=== PATIENT | male | born 1945 | race Caucasian/White ===

== ENCOUNTER 2017-11-01 18:17 | Emergency (ER) | payer OTHER ==
[2017-11-01 18:35] VITALS: BP 146/90; PULSE 86; TEMP 98.4; BMI 39.4
--- NOTE | 2017-11-01 19:48 | PDOC ---
History of Present Illness - General History Source: Patient - History of Present Illness Initial Comments: 11/01/17 20:20 The patient is a 69 y/o afebrile male with a significant past medical history of NIDDM, HTN, HLD, BPH who presents to the emergency department for evaluation of blood glucose in the 500s. The patient denies any complaints of pain. The patients blood glucose in the ED is 319. He denies chest pain, shortness of breath, headache and dizziness. He denies fever, chills, nausea, vomit, diarrhea and constipation. He denies dysuria, frequency, urgency and hematuria. Allergies: NKDA PCP: Dr. Andry Iglesias <Renetta Manzano - Last Filed: 11/01/17 20:20> - General History Source: Patient <Gregorio Santos - Last Filed: 11/02/17 19:59> - General Chief Complaint: Blood Sugar Problem Stated Complaint: HYPERGLYCEMIA Time Seen by Provider: 11/01/17 19:38 Past History <Renetta Manzano - Last Filed: 11/01/17 20:20> - Past Medical History Anemia: No Asthma: No Cancer: No Cardiac Disorders: No CVA: No COPD: No CHF: No Dementia: No Diabetes: Yes GI Disorders: Yes (gerd.) Disorders: No HTN: Yes Hypercholesterolemia: Yes Liver Disease: No Seizures: No Thyroid Disease: No Other medical history: BPH. - Surgical History Abdominal Surgery: No Appendectomy: No Cardiac Surgery: No Cholecystectomy: No Lung Surgery: No Neurologic Surgery: No Orthopedic Surgery: No - Immunization History Immunization Up to Date: Yes - Suicide/Smoking/Psychosocial Hx Smoking Status: Yes Smoking History: Never smoked Have you smoked in the past 12 months: No Number of Cigarettes Smoked Daily: 0 If you are a former smoker, when did you quit?: 20-30 YEARS AGO Hx Alcohol Use: Yes (occassionally.) Drug/Substance Use Hx: No Substance Use Type: Alcohol Hx Substance Use Treatment: No <Gregorio Santos - Last Filed: 11/02/17 19:59> - Past Medical History Allergies/Adverse Reactions: Allergies Allergy/AdvReac Type Severity Reaction Status Date / Time No Known Drug Allergies Allergy Verified 11/01/17 18:35 Home Medications: Ambulatory Orders Tamsulosin HCl 0.4 mg PO DAILY 03/01/13 Simvastatin [Zocor -] 20 mg PO HS 01/13/15 Glipizide [Glipizide ER] 10 mg PO DAILY 02/14/15 Amlodipine Besylate/Benazepril [Lotrel 10-20 mg Capsule] 1 cap PO DAILY Deferasirox [Jadenu] 360 mg PO BID 11/01/17 Hydralazine HCl 50 mg PO DAILY 11/01/17 Insulin Glargine,Hum.rec.anlog [Lantus Solostar] 40 unit SQ DAILY 11/01/17 Losartan/Hydrochlorothiazide [Losartan-Hctz 100-25 mg Tab] 1 each PO DAILY 11/01 Omeprazole Magnesium [Prilosec Otc] 40 mg PO DAILY 11/01/17 Review of Systems - Review of Systems Able to Perform ROS?: Yes Comments:: 11/01/17 20:21 CONSTITUTIONAL: Absent: fever, chills, diaphoresis, generalized weakness, malaise, loss of appetite HEENT: Absent: rhinorrhea, nasal congestion, throat pain, throat swelling, difficulty swallowing, mouth swelling, ear pain, eye pain, visual Changes CARDIOVASCULAR: Absent: chest pain, syncope, palpitations, irregular heart rate, lightheadedness , peripheral edema RESPIRATORY: Absent: cough, shortness of breath, dyspnea with exertion, orthopnea, wheezing, stridor, hemoptysis GASTROINTESTINAL: Absent: abdominal pain, abdominal distension, nausea, vomiting, diarrhea, constipation, melena, hematochezia GENITOURINARY: Absent: dysuria, frequency, urgency, hesitancy, hematuria, flank pain, genital pain MUSCULOSKELETAL: Absent: myalgia, arthralgia, joint swelling SKIN: Absent: rash, itching, pallor HEMATOLOGIC/IMMUNOLOGIC: (+)hyperglycemia. Absent: easy bleeding, easy bruising, lymphadenopathy, frequent infections ENDOCRINE: Absent: unexplained weight gain, unexplained weight loss, heat intolerance, cold intolerance NEUROLOGIC: Absent: headache, focal weakness or paresthesias, dizziness, unsteady gait, seizure, mental status changes, bladder or bowel incontinence PSYCHIATRIC: Absent: anxiety, depression, suicidal or homicidal ideation, hallucinations. <Renetta Manzano - Last Filed: 11/01/17 20:20> *Physical Exam - Vital Signs Last Vital Signs Temp Pulse Resp BP Pulse Ox 98.4 F 86 18 146/90 98 11/01/17 18:32 0218 18:32 11/01/17 18:32 11/01/17 18:32 11/01/17 18:32 - Physical Exam Comments: 11/01/17 20:21 GENERAL: Well developed, well nourished. Awake and alert. No acute distress. HEENT: Normocephalic, atraumatic. PERRLA, EOMI. No conjunctival pallor. Sclera are non- icteric. Moist mucous membranes. Oropharynx is clear. NECK: Supple. Full ROM. No JVD. Carotid pulses 2+ and symmetric, without bruits. No thyromegaly. No lymphadenopathy. CARDIOVASCULAR: Regular rate and rhythm. No murmurs, rubs, or gallops. Distal pulses are 2+ and symmetric. PULMONARY: No evidence of respiratory distress. Lungs clear to auscultation bilaterally. No wheezing, rales or rhonchi. ABDOMINAL: Soft. Non-tender. Non-distended. No rebound or guarding. No organomegaly. Normoactive bowel sounds. MUSCULOSKELETAL Normal range of motion at all joints. No bony deformities or tenderness. No CVA tenderness. EXTREMITIES: No cyanosis. No clubbing. No edema. No calf tenderness. SKIN: Warm and dry. Normal capillary refill. No rashes. No jaundice. NEUROLOGICAL: Alert, awake, appropriate. Cranial nerves 2-12 intact. Normoreflexic in the upper and lower extremities. Normal speech. Toes are down-going bilaterally. Gait is normal without ataxia. PSYCHIATRIC: Cooperative. Good eye contact. Appropriate mood and affect. <Renetta Manzano - Last Filed: 11/01/17 20:20> - Vital Signs Last Vital Signs Temp Pulse Resp BP Pulse Ox 98.4 F 86 18 146/90 98 11/01/17 18:32 11/01/17 18:32 11/01/17 18:32 11/01/17 18:32 11/01/17 18:32 <Gregorio Santos - Last Filed: 11/02/17 19:59> ED Treatment Course - LABORATORY CBC & Chemistry Diagram: 11/01/17 20:00 11/01/17 20:00 - ADDITIONAL ORDERS Additional order review: Laboratory Results 11/01/17 11/01/17 20:00 18:45 POC Glucometer [id number] Magnesium Cancelled Lipase Cancelled 11/01/17 18:45 POC Glucometer [id number] <Renetta Manzano - Last Filed: 11/01/17 20:20> - LABORATORY CBC & Chemistry Diagram: 11/01/17 20:00 11/01/17 20:00 - ADDITIONAL ORDERS Additional order review: Laboratory Results 11/01/17 18:45 POC Glucometer [id number] 11/01/17 18:45 POC Glucometer [id number] <Gregorio Santos - Last Filed: 11/02/17 19:59> Medical Decision Making - Medical Decision Making 11/01/17 23:54 Pt blood glucose is now 254. Pt denies any c/o at all at this time, Pt to be discharged. advised to follow up with is pcp. 11/02/17 19:59 Dr. Santos: The scribe's documentation has been prepared under my direction and personally reviewed by me in its entirery. I confirm that the note above accurately reflects all work, treatment, procedures, and medical decision making performed by me. <Gregorio Santos - Last Filed: 11/02/17 19:59> *DC/Admit/Observation/Transfer - Attestations Scribe Attestion: 11/01/17 20:21 Documentation prepared by Renetta Manzano, acting as medical delivery technician for Gregorio Santos DO <Renetta Manzano - Last Filed: 11/01/17 20:20> - Discharge Dispostion Admit: No <Gregorio Santos - Last Filed: 11/02/17 19:59> Diagnosis at time of Disposition: Hyperglycemia - Discharge Dispostion Disposition: HOME Condition at time of disposition: Stable - Referrals Referrals: Andry Iglesias MD [Primary Care Provider] - - Patient Instructions Printed Discharge Instructions: DI for Hyperglycemia -- Adult Additional Instructions: Please take all medications as usual. Monitor blood glucose often. Eat well. Return if any problems. Print Language: UKRAINIAN - Post Discharge Activity
[2017-11-01] MEDS ORDERED: SODIUM CHLORIDE 1,000 ML IV STA ×2 (19:49→21:21)
[2017-11-01 20:09] LABS: HEMOGLOBIN 13.9 GM/dL (11.7-16.9); MCH 28.7 pg (25.7-33.7); MEAN CELL VOLUME 85.3 fl (80-96)
[2017-11-01 20:20] LABS: BASO % 0.6 % (0-2.0); EOS % 4.6 % (0-4.5); HEMATOCRIT 41.4 % (35.4-49); LYMPH % 30.1 % (8-40); MCHC 33.7 g/dl (32.0-35.9); MEAN PLT VOLUME 8.7 fl (7.5-11.1); MONO % 7.2 % (3.8-10.2); NEUT % 57.5 % (42.8-82.8); PLATELET COUNT 299 K/MM3 (134-434); RBC 4.85 M/mm3 (4.00-5.60); RDW 13.4 % (11.9-15.9); WHITE BLOOD COUNT 8.6 K/mm3 (4.0-10.0)
[2017-11-01 20:48] LABS: ALBUMIN 3.8 g/dl (3.4-5.0); ALK PHOS 146 U/L (45-117); ANION GAP 8 (8-16); BILIRUBIN,TOTAL 0.5 mg/dL (0.2-1.0); BLOOD UREA NITROGEN 18 mg/dL (7-18); CALCIUM 8.6 mg/dL (8.5-10.1); CHLORIDE 97 mmol/L (98-107); CO2 27 mmol/L (21-32); CREATININE 1.4 mg/dL (0.7-1.3); LIPASE 168 U/L (73-393); SGPT/ALT 37 U/L (12-78); SODIUM 132 mmol/L (136-145); TOT PROT 7.4 g/dl (6.4-8.2)
[2017-11-01 21:06] LABS: MAGNESIUM 2.4 mg/dL (1.8-2.4); POTASSIUM 4.7 mmol/L (3.5-5.1); SGOT/AST 16 U/L (15-37)
[2017-11-01 21:09] LABS: GLUCOSE,RANDOM 533 mg/dL (74-106); INR 0.93 (0.82-1.09); PROTHROMBIN TIME (PATIENT) 10.5 SEC (9.98-11.88)
[2017-11-01 21:11] LABS: ACETONE SERUM NEGATIVE (NEGATIVE)
[2017-11-01 21:11] LABS: URINE APPEARANCE CLEAR; URINE BILIRUBIN NEGATIVE (NEGATIVE); URINE BLOOD NEGATIVE (NEGATIVE); URINE COLOR COLORLESS; URINE GLUCOSE (UA) 3+ (NEGATIVE); URINE KETONE NEGATIVE (NEGATIVE); URINE LEUK ESTERASE NEGATIVE (NEGATIVE); URINE NITRITE NEGATIVE (NEGATIVE); URINE PROTEIN NEGATIVE (NEGATIVE); URINE UROBILINOGEN NEGATIVE mg/dL (0.2-1.0)
[2017-11-01] MEDS ORDERED: INSULIN REGULAR HUMAN 100 UNITS/ML *VIAL IVPUSH ONE ×2 (21:21→22:46)
[2017-11-01] MEDS ORDERED: INSULIN REGULAR HUMAN 100 UNITS/ML *VIAL ONE ×2 (21:22→22:50)
== END 2017-11-02 00:04 | disposition home or self-care (01) ==
LOC: JER 18:17
PROC: 3E0337Z Introduction of Electrolytic and Water Balance Substance into Peripheral Vein, Percutaneous Approach (ICD-10-PCS; principal; 2017-11-01)
PROC: 3E033VG Introduction of Insulin into Peripheral Vein, Percutaneous Approach (ICD-10-PCS; 2017-11-01)
PROC: 3E033VG Introduction of Insulin into Peripheral Vein, Percutaneous Approach (ICD-10-PCS; 2017-11-01)
DX: E11.65 Type 2 diabetes mellitus with hyperglycemia (principal); Z79.84 Long term (current) use of oral hypoglycemic drugs; I10 Essential (primary) hypertension; E78.00 Pure hypercholesterolemia, unspecified; N40.0 Benign prostatic hyperplasia without lower urinary tract symptoms
CPT/HCPCS: 36415; 80053; 81003; 82009; 83690; 83735; 85025; 85610; 96361; 96374; 96376; 99283-25

== ENCOUNTER 2019-05-17 11:30 | Inpatient (IN) | payer OTHER | END 2019-05-22 15:32 | disposition home or self-care (01) | LOC: J5S 05-18 00:39 → J8W 05-19 22:50 → JERFT 11:30 → JERBED 14:54 ==

== ENCOUNTER 2020-06-18 16:13 | Emergency (ER) | payer OTHER ==
[2020-06-18 16:32] VITALS: TEMP 98.6; BMI 38.9
[2020-06-18] MEDS ORDERED: ACETAMINOPHEN 1000 MG/100 ML VIAL (NON FORMULARY) IVPB ONE (17:34)
[2020-06-18] MEDS ORDERED: METOCLOPRAMIDE HCL INJECTION 10 MG/2 ML VIAL IVPB ONE (17:35)
[2020-06-18] MEDS ORDERED: ACETAMINOPHEN INJECTION 100 ML IVPB ONE (17:54)
[2020-06-18] MEDS ORDERED: METOCLOPRAMIDE HCL INJECTION 10 MG/2 ML VIAL ONE (17:54)
--- NOTE | 2020-06-18 18:21 | PDOC ---
History of Present Illness - General Chief Complaint: Blood Pressure Problem Stated Complaint: BLOOD PRESSURE PROBLEM Time Seen by Provider: 06/18/20 16:42 - History of Present Illness Initial Comments: Pt is a 74yo M for IDDM, HTN, HLD who presents with elevated blood pressure and headache. Pt states that his blood pressure reading was elevated to 190s SBP yesterday and today. Took 650mg Tylenol at 11am today with mild improvement in symptoms. Also reports 2 month history of R eye blurry vision. Reports that he is compliant with medications, however, his son reports that medications were not placed into pill box correctly this past week in addition to skipped doses of medication. Son states that he gave pt double doses of hydralazine for yesterday evening and this morning; however pt's states that he received his normal doses of medications today. PCP: [facility] PMH: see HPI Meds: losartan, hydralazine, insulin Allergies: NKDA Social: occasional ETOH use, denies tobacco and illicit drug use Review of Systems CONSTITUTIONAL:denies fever, chills, diaphoresis, generalized weakness, malaise HEENT:reports chronic visual changes; denies rhinorrhea, nasal congestion, sore throat, ear pain, eye pain CARDIOVASCULAR:denies chest pain, palpitations, lightheadedness, peripheral edema RESPIRATORY:denies cough, shortness of breath, wheezing GASTROINTESTINAL: denies abdominal pain, nausea, vomiting, diarrhea, constipation, melena, hematochezia GENITOURINARY:denies dysuria, frequency, urgency, hesitancy, hematuria MUSCULOSKELETAL:denies myalgia, arthralgia, neck pain, back pain HEMATOLOGIC/IMMUNOLOGIC:denies easy bleeding, easy bruising ENDOCRINE: denies unexplained weight gain, unexplained weight loss NEUROLOGIC:reports headache, denies loss of consciousness, focal weakness or paresthesias, dizziness, unsteady gait, mental status changes, bladder or bowel incontinence SKIN:denies rash, itching, pallor Physical Exam General: awake, alert, fully oriented, in no acute distress, well developed, well nourished Head: normocephalic, atraumatic Eyes: PERRL, EOMI, anicteric sclera, conjunctiva clear ENT: hearing grossly normal, oropharynx clear without exudates. Moist mucous membranes Neck: supple, normal ROM Lung: equal breath sounds b/l, CTA b/l, no crackles, wheezes; no distress, speaks full sentences Heart: RRR, normal S1, S2, no murmurs appreciated Abdomen: soft, non tender, normoactive bowel sounds, no guarding, rebound, masses Extremities: normal ROM, no edema, no erythema or tenderness, radial/DP/PT pulses 2+ and symmetric Neuro: CN2-12 grossly intact, moves all extremities, normal speech, sensation intact Skin: warm, dry, no rashes or lesions noted Past History - Medical History Allergies/Adverse Reactions: Allergies Allergy/AdvReac Type Severity Reaction Status Date / Time No Known Drug Allergies Allergy Verified 05/17/19 11:35 Home Medications: Ambulatory Orders Tamsulosin HCl 0.4 mg PO DAILY 03/01/13 Simvastatin [Zocor -] 20 mg PO HS 01/13/15 Hydralazine HCl 50 mg PO DAILY 11/01/17 Insulin Glargine,Hum.rec.anlog [Lantus Solostar] 40 unit SQ DAILY 11/01/17 Omeprazole Magnesium [Prilosec Otc] 40 mg PO DAILY 11/01/17 Amlodipine Besylate 10 mg PO DAILY 05/17/19 Insulin (LOG) Aspart [NovoLOG -] 0 unit SQ DAILY 05/17/19 Sitagliptin Phos/Metformin HCl [Janumet 50-500 mg Tablet] 1 tab PO DAILY 05/17/19 Linezolid [Zyvox] 600 mg PO BID #20 tablet 05/22/19 Anemia: No Asthma: No Cancer: No Cardiac Disorders: No CVA: No COPD: No CHF: No Dementia: No Diabetes: Yes GI Disorders: Yes (gerd.) Disorders: No HTN: Yes Hypercholesterolemia: Yes Liver Disease: No Seizures: No Thyroid Disease: No - Surgical History Abdominal Surgery: No Appendectomy: No Cardiac Surgery: No Cholecystectomy: No Lung Surgery: No Neurologic Surgery: No Orthopedic Surgery: No - Immunization History Immunization Up to Date: Yes - Psycho-Social/Smoking History Smoking Status: Yes Smoking History: Never smoked Have you smoked in the past 12 months: No Number of Cigarettes Smoked Daily: 0 If you are a former smoker, when did you quit?: 20-30 YEARS AGO - Substance Abuse Hx (Audit-C & DAST Scrn) How often the patient has a drink containing alcohol: Never Score: In Men: 4 or > Positive; In Women: 3 or > Positive: 0 Screen Result (Pos requires Nsg. Audit-10AR): Negative In the last yr the pt used illegal drug/Rx for NonMed reason: No Score: Yes response is considered Positive: 0 Screen Result (Positive result requires Nsg. DAST-10): Negative *Physical Exam - Vital Signs Last Vital Signs Temp Pulse Resp BP Pulse Ox 98.6 F 102 H 20 192/111 H 100 06/18/20 16:17 06/18/20 16:17 06/18/20 16:17 06/18/20 16:17 06/18/20 16:17 ED Treatment Course - LABORATORY CBC & Chemistry Diagram: 06/18/20 18:00 06/18/20 18:00 - RADIOLOGY Radiology Studies Ordered: Category Date Time Status HEAD CT WITHOUT CONTRAST [CT] Stat CT Scan 06/18/20 17:34 Ordered Medical Decision Making - Medical Decision Making Pt is a 74yo M with PMH IDDM, HTN, HLD who presents with elevated blood pressure and headache. DDx: hypertensive urgency, intracranial hemorrhage Plan: labs, UA, EKG EKG: sinus rhythm with 1st degree AV block (unchanged from 2019), HR 77bpm, NH 236ms, QRS 84ms, QTc 425ms, no ST changes 06/18/20 18:38 labs: no leukocytosis, no anemia 06/18/20 19:03 labs: elevated Cr (1.5, baseline 1.3), electrolytes WNL, LFTs WNL pending CT, UA 06/18/20 19:18 UA: trace protein, glucosuria 06/18/20 19:46 CT head: no acute intracranial bleeding Pt states that headache is improved Disposition Discharge to home Discharge - Discharge Information Problems reviewed: Yes Clinical Impression/Diagnosis: Glucosuria, Uncontrolled hypertension, Hypertensive urgency Hypertension Qualifiers: Hypertension type: unspecified Qualified Code(s): I10 - Essential (primary) hypertension Condition: Stable Disposition: HOME - Admission No - Follow up/Referral Referrals: Andry Iglesias MD [Primary Care Provider] - - Patient Discharge Instructions Patient Printed Discharge Instructions: DI for High Blood Pressure Additional Instructions: You came into the ER elevated blood pressure. In the ED, you were evaluated with blood work, urinalysis and head CT. Your blood work results were normal, your urine results showed sugar, you should take your insulin as prescribed. Your head CT was normal, it did not indicate any bleeding in the brain. You do not appear to be an acute need for immediate hospitalization. You should try to limit your intake of foods high in salt (sodium). You were advised to follow up with your primary care doctor tomorrow. You should have your blood pressure re-checked at your PCP office. Come back to the ER immediately with any new or worsening concerns, worsening vision, headaches. Thank you for coming to the [facility] ER. We hope you feel better soon! - Post Discharge Activity Vital Signs - Vital Signs Blood Pressure: 170/95 BP Location: Right Arm Blood Pressure position: Supine
[2020-06-18 18:33] LABS: BASO % 0.7 % (0-2.0); EOS % 5.8 % (0-4.5); HEMATOCRIT 42.8 % (35.4-49); HEMOGLOBIN 14.2 GM/dL (11.7-16.9); LYMPH % 27.2 % (8-40); MCH 28.8 pg (25.7-33.7); MCHC 33.3 g/dl (32.0-35.9); MEAN CELL VOLUME 86.6 fl (80-96); MEAN PLT VOLUME 7.9 fl (7.5-11.1); MONO % 7.6 % (3.8-10.2); NEUT % 58.7 % (42.8-82.8); PLATELET COUNT 375 K/MM3 (134-434); RBC 4.94 M/mm3 (4.00-5.60); RDW 15.1 % (11.9-15.9); WHITE BLOOD COUNT 9.9 K/mm3 (4.0-10.0)
[2020-06-18 18:45] LABS: ALBUMIN 3.5 g/dl (3.4-5.0); ALK PHOS 65 U/L (45-117); ANION GAP 7 MMOL/L (8-16); BILIRUBIN,TOTAL 0.3 mg/dL (0.2-1); BLOOD UREA NITROGEN 15.2 mg/dL (7-18); CALCIUM 9.2 mg/dL (8.5-10.1); CHLORIDE 110 mmol/L (98-107); CO2 25 mmol/L (21-32); CREATININE 1.5 mg/dL (0.55-1.3); GLUCOSE,RANDOM 137 mg/dL (74-106); POTASSIUM 4.8 mmol/L (3.5-5.1); SGOT/AST 22 U/L (15-37); SGPT/ALT 34 U/L (13-61); SODIUM 141 mmol/L (136-145); TOT PROT 6.9 g/dl (6.4-8.2)
--- NOTE | 2020-06-18 19:03 | PDOC ---
Documentation entered by Daisy De Jesus SCRIBE, acting as scribe for Elizabeth Mcdonald DO. Elizabeth Mcdonald DO: This documentation has been prepared by the ericae, Daisy De Jesus SCRIBE, under my direction and personally reviewed by me in its entirety. I confirm that the documentation accurately reflects all work, treatment, procedures, and medical decision making performed by me. Attending Attestation - Resident Resident Name: Candie Miranda - ED Attending Attestation I have performed the following: I have examined & evaluated the patient, The case was reviewed & discussed with the resident, I agree w/resident's findings & plan, Exceptions are as noted - HPI HPI: 06/18/20 18:39 The patient is a 74-year-old male with a significant past medical history of DM, HTN(losartan and hydralazine), HLD, and BPH who presents to the emergency department with elevated blood pressure and a headache. The patient recalls having elevated blood pressure at home, reports he is compliant with all his HTN medication. The patient reports associated symptoms of a frontal headache, resolved after taking Tylenol. The patient reports that even after the headache resolved, his blood pressure was still noted to be elevated. The patients children were concerned and the patient presented for further evaluation. Denies vision change, paresthesia, chest pain, abdominal pain. Denies recent fever, shortness of breath, cough, sore throat, difficulty urinating. - Physicial Exam PE: 06/18/20 18:40 Constitutional: Awake, alert, oriented. No acute distress. Head: Normocephalic. Atraumatic Eyes: PERRL. EOMI. Conjunctivae are not pale. ENT: Mucous membranes are moist and intact. Posterior pharynx without exudate or erythema. Uvula midline. Neck: Supple. Full ROM. No lymphadenopathy. Cardiovascular: Regular rate. Regular rhythm. S1, S2 regular. Distal pulses are 2+ and symmetric. Pulmonary/Chest: No evidence of respiratory distress. Clear to auscultation bilaterally No wheezing, rales or rhonchi. Abdominal: Soft and nondistended. There is no tenderness. No rebound, guarding or rigidity. Good bowel sounds. Back: No CVA tenderness. Musculoskeletal: No neck tenderness. No cyanosis. No clubbing. Full range of motion in all extremities. No calf tenderness. Radial/pedal pulses are intact and 2+ bilaterally Skin: +very trace edema of the ankle, chronic in nature. Skin is warm and dry. No petechiae. No purpura. Neurological: Alert and oriented to person, place, and time. Cranial nerves II-XII are grossly intact. Normal speech. Strength is grossly symmetric. No sensory deficits. Psychiatric: Good eye contact. Normal interaction, affect and behavior. - Medical Decision Making 06/18/20 18:58 a/p: 74yo male with pmhx of htn presents for eval of a card earlier today, which has resolved and elevated bp -pt arrives hypertensive -states he is compliance with his meds -pt denies neck pain, blurred vision, cp/sob, abd pain, no dysuria. hematuria, n/v/d, paresthesias and weakness -will send labs, head ct, ekg, cxr, ua -will medicate for pain -will monitor and reassess -pt is neuro intact 06/18/20 19:03 cr 1.5, baseline 1.3 06/18/20 19:[address] without new changes labs reviewed trop neg ua shows glu stable for dc to home repeat bp is 170/95 recommend repeat bp check tomorrow with Dr. Iglesias Heart Score/ECG Review - ECG Intrepretation Comment:: 06/18/20 19:02 sinus at 77, 1st degree av block, nl axis, no acute st/t wave findings Discharge - Discharge Information Problems reviewed: Yes Clinical Impression/Diagnosis: Glucosuria, Uncontrolled hypertension Condition: Stable Disposition: HOME - Admission No - Follow up/Referral Referrals: Andry Iglesias MD [Primary Care Provider] - - Patient Discharge Instructions - Post Discharge Activity
[2020-06-18 19:11] LABS: URINE APPEARANCE CLEAR; URINE BILIRUBIN NEGATIVE (NEGATIVE); URINE COLOR YELLOW; URINE GLUCOSE (UA) 3+ (NEGATIVE); URINE KETONE NEGATIVE (NEGATIVE); URINE LEUK ESTERASE NEGATIVE (NEGATIVE); URINE NITRITE NEGATIVE (NEGATIVE); URINE PROTEIN TRACE (NEGATIVE); URINE UROBILINOGEN 0.2 mg/dL (0.2-1.0)
[2020-06-18 19:21] VITALS: PULSE 85
[2020-06-18 19:32] VITALS: BP 170/95
--- NOTE | 2020-06-19 16:56 | EKG ---
Test Reason : Blood Pressure : / mmHG Vent. Rate : 077 BPM Atrial Rate : 077 BPM P-R Int : 236 ms QRS Dur : 084 ms QT Int : 376 ms P-R-T Axes : 027 017 037 degrees QTc Int : 425 ms SINUS RHYTHM WITH 1ST DEGREE A-V BLOCK OTHERWISE NORMAL ECG WHEN COMPARED WITH ECG OF 17-MAY-2019 13:59, ABERRANT CONDUCTION IS NO LONGER PRESENT Confirmed by KWABENA APONTE, ONEL ([id number]) on 06/19/2020 4:55:58 PM Referred By: Confirmed By:ONEL YUAN MD
== END 2020-06-18 20:00 | disposition home or self-care (01) ==
LOC: JER 16:13
PROC: 3E033NZ Introduction of Analgesics, Hypnotics, Sedatives into Peripheral Vein, Percutaneous Approach (ICD-10-PCS; principal; 2020-06-18)
PROC: 3E033GC Introduction of Other Therapeutic Substance into Peripheral Vein, Percutaneous Approach (ICD-10-PCS; 2020-06-18)
DX: R81 Glycosuria (principal); I16.0 Hypertensive urgency
CPT/HCPCS: 36415; 70450-TC; 80053; 81003; 84484; 85025; 93005; 93010; 99285-25; J0131

== ENCOUNTER 2021-12-22 20:46 | Inpatient (IN) | payer OTHER ==
[2021-12-22 20:56] VITALS: BMI 39.9
[2021-12-22 22:19] LABS: BASO % 0.6 % (0-2.0); HEMOGLOBIN 14.2 GM/dL (11.7-16.9); LYMPH % 23.8 % (8-40); MCH 29.5 pg (25.7-33.7); MCHC 34.7 g/dl (32.0-35.9); MEAN PLT VOLUME 7.8 fl (7.5-11.1); MONO % 7.2 % (3.8-10.2); NEUT % 62.4 % (42.8-82.8); PLATELET COUNT 340 10^3/uL (134-434); RBC 4.82 M/mm3 (4.00-5.60); WHITE BLOOD COUNT 9.5 K/mm3 (4.0-10.0)
[2021-12-22 22:37] LABS: EPI CELLS 2 /uL (0-25.1); HYALINE CASTS 0 /uL (0-3.1); URINE APPEARANCE CLEAR; URINE BACTERIA 9 /uL (0-1359); URINE BILIRUBIN NEGATIVE (NEGATIVE); URINE COLOR YELLOW; URINE GLUCOSE (UA) 3+ (NEGATIVE); URINE KETONE NEGATIVE (NEGATIVE); URINE LEUK ESTERASE NEGATIVE (NEGATIVE); URINE NITRITE NEGATIVE (NEGATIVE); URINE PROTEIN 1+ (NEGATIVE); URINE RBC 3 /uL (0-23.9); URINE UROBILINOGEN 0.2 mg/dL (0.2-1.0); URINE WBC 2 /uL (0-25.8)
[2021-12-22 22:51] LABS: INR 0.92 (0.83-1.09); PROTHROMBIN TIME (PATIENT) 10.6 SEC (9.7-13.0)
[2021-12-22 22:53] LABS: ACTIVATED PTT 27.4 SECONDS (25.2-36.5)
[2021-12-22 23:02] LABS: CALCIUM 9.1 mg/dL (8.5-10.1)
[2021-12-22 23:03] LABS: ALBUMIN 3.6 g/dl (3.4-5.0)
[2021-12-22 23:04] LABS: BLOOD UREA NITROGEN 17.9 mg/dL (7-18)
[2021-12-22 23:06] LABS: CREATININE 1.7 mg/dL (0.55-1.3)
[2021-12-22 23:09] LABS: BILIRUBIN,TOTAL 0.6 mg/dL (0.2-1)
[2021-12-23] MEDS ORDERED: ASPIRIN COATED 81 MG TABLET.EC PO ONE (02:57)
[2021-12-23] MEDS ORDERED: ATORVASTATIN CA 40 MG TABLET (FP) PO SCH ×2 (02:58→17:31)
[2021-12-23] MEDS ORDERED: ATORVASTATIN CA 40 MG TABLET (FP) ONE (03:26)
[2021-12-23] MEDS ORDERED: ASPIRIN COATED 81 MG TABLET.EC ONE ×2 (03:26→08:24)
[2021-12-23] MEDS ORDERED: HEPARIN NA (PORCINE) 5,000 UNITS/ML 1ML VIAL ONE ×2 (05:51→08:24)
[2021-12-23] MEDS: HEPARIN NA (PORCINE) 5,000 UNITS/ML 1ML VIAL SQ SCH ×3 (06:03→21:34)
[2021-12-23] MEDS ORDERED: INSULIN SLIDING SCALE (NOVOLOG) 1 VIAL SQ SCH (07:00)
[2021-12-23 08:01] LABS: BASO % 0.5 % (0-2.0); EOS % 5.9 % (0-4.5); HEMATOCRIT 39.2 % (35.4-49); LYMPH % 28.2 % (8-40); MCH 28.4 pg (25.7-33.7); MCHC 33.2 g/dl (32.0-35.9); MEAN CELL VOLUME 85.4 fl (80-96); MEAN PLT VOLUME 8.3 fl (7.5-11.1); MONO % 7.7 % (3.8-10.2); NEUT % 57.7 % (42.8-82.8); PLATELET COUNT 335 10^3/uL (134-434); RBC 4.59 M/mm3 (4.00-5.60); WHITE BLOOD COUNT 10.1 K/mm3 (4.0-10.0)
[2021-12-23 08:12] LABS: CALCIUM 9.4 mg/dL (8.5-10.1)
[2021-12-23 08:13] LABS: ALBUMIN 3.4 g/dl (3.4-5.0); BLOOD UREA NITROGEN 15.7 mg/dL (7-18)
[2021-12-23 08:16] LABS: CREATININE 1.5 mg/dL (0.55-1.3); PHOSPHOROUS 2.7 mg/dL (2.5-4.9)
[2021-12-23 08:17] LABS: BILIRUBIN,TOTAL 0.4 mg/dL (0.2-1); TOT PROT 6.5 g/dl (6.4-8.2)
[2021-12-23] MEDS: ASPIRIN COATED 81 MG TABLET.EC PO SCH (09:02)
[2021-12-23] MEDS: INSULIN SLIDING SCALE (NOVOLOG) 1 VIAL SQ SCH ×3 (11:28→21:34)
[2021-12-23] MEDS: FENOFIBRIC ACID 135 MG CAP PO SCH (11:29)
[2021-12-23] MEDS: amLODIPine BESYLATE 5 MG TABLET (FP) PO SCH (13:15)
[2021-12-23] MEDS ORDERED: hydrALAZINE HCL 25 MG TABLET (FP) PO ONE (14:45)
[2021-12-23] MEDS ORDERED: INSULIN (NOVOLOG) ASPART 100 UNITS/ML 10ML VIAL SQ ONE (15:00)
[2021-12-23] MEDS: INSULIN (LEVEMIR) 100 UNITS/ML UNITS SQ SCH (21:33)
[2021-12-23] MEDS: ATORVASTATIN CA 80 MG TABLET (FP) PO SCH (21:34)
[2021-12-24] MEDS: HEPARIN NA (PORCINE) 5,000 UNITS/ML 1ML VIAL SQ SCH ×3 (06:12→22:38)
[2021-12-24] MEDS: INSULIN SLIDING SCALE (NOVOLOG) 1 VIAL SQ SCH ×4 (06:13→22:39)
[2021-12-24 07:44] LABS: BLOOD UREA NITROGEN 15.4 mg/dL (7-18); CALCIUM 9.2 mg/dL (8.5-10.1); HEMATOCRIT 40.7 % (35.4-49); MCH 28.9 pg (25.7-33.7); MCHC 34.3 g/dl (32.0-35.9); MEAN CELL VOLUME 84.2 fl (80-96); MEAN PLT VOLUME 8.4 fl (7.5-11.1); PLATELET COUNT 353 10^3/uL (134-434); RBC 4.83 M/mm3 (4.00-5.60); RDW 13.6 % (11.9-15.9); WHITE BLOOD COUNT 9.3 K/mm3 (4.0-10.0)
[2021-12-24 07:46] LABS: PHOSPHOROUS 3.5 mg/dL (2.5-4.9)
[2021-12-24 07:48] LABS: CREATININE 1.4 mg/dL (0.55-1.3)
[2021-12-24] MEDS: CARVEDILOL 6.25 MG TABLET (FP) PO SCH (10:19)
[2021-12-24] MEDS: amLODIPine BESYLATE 5 MG TABLET (FP) PO SCH (10:19)
[2021-12-24] MEDS: FENOFIBRIC ACID 135 MG CAP PO SCH (10:19)
[2021-12-24] MEDS: ASPIRIN COATED 81 MG TABLET.EC PO SCH (10:19)
[2021-12-24] MEDS: TAMSULOSIN HCL 0.4 MG CAP PO SCH (10:19)
[2021-12-24] MEDS: INSULIN (LEVEMIR) 100 UNITS/ML UNITS SQ SCH ×2 (10:26→22:37)
[2021-12-24] MEDS: ATORVASTATIN CA 80 MG TABLET (FP) PO SCH (22:39)
[2021-12-25] MEDS: HEPARIN NA (PORCINE) 5,000 UNITS/ML 1ML VIAL SQ SCH ×3 (06:57→22:23)
[2021-12-25] MEDS: INSULIN SLIDING SCALE (NOVOLOG) 1 VIAL SQ SCH ×4 (06:57→22:24)
[2021-12-25 07:42] LABS: BASO % 0.4 % (0-2.0); EOS % 5.9 % (0-4.5); HEMATOCRIT 39.8 % (35.4-49); HEMOGLOBIN 13.9 GM/dL (11.7-16.9); LYMPH % 29.5 % (8-40); MCH 29.4 pg (25.7-33.7); MEAN CELL VOLUME 83.9 fl (80-96); MEAN PLT VOLUME 8.3 fl (7.5-11.1); MONO % 8.2 % (3.8-10.2); PLATELET COUNT 328 10^3/uL (134-434); RBC 4.75 M/mm3 (4.00-5.60); RDW 13.4 % (11.9-15.9)
[2021-12-25 08:03] LABS: CALCIUM 9.1 mg/dL (8.5-10.1)
[2021-12-25 08:04] LABS: BLOOD UREA NITROGEN 21.5 mg/dL (7-18)
[2021-12-25 08:06] LABS: CREATININE 1.5 mg/dL (0.55-1.3)
[2021-12-25] MEDS: ASPIRIN COATED 81 MG TABLET.EC PO SCH (09:24)
[2021-12-25] MEDS: amLODIPine BESYLATE 5 MG TABLET (FP) PO SCH (09:24)
[2021-12-25] MEDS: CARVEDILOL 6.25 MG TABLET (FP) PO SCH (09:24)
[2021-12-25] MEDS: TAMSULOSIN HCL 0.4 MG CAP PO SCH (09:24)
[2021-12-25] MEDS: FENOFIBRIC ACID 135 MG CAP PO SCH (09:29)
[2021-12-25] MEDS: Insulin (LOG) Aspart 100 UNITS/ML VIAL SQ SCH ×2 (11:57→18:50)
[2021-12-25] MEDS: INSULIN (LEVEMIR) 100 UNITS/ML UNITS SQ SCH ×2 (11:58→22:22)
[2021-12-25] MEDS ORDERED: INSULIN (NOVOLOG) ASPART 100 UNITS/ML 10ML VIAL SQ ONE (14:13)
[2021-12-25] MEDS: ATORVASTATIN CA 80 MG TABLET (FP) PO SCH (22:32)
[2021-12-26] MEDS: HEPARIN NA (PORCINE) 5,000 UNITS/ML 1ML VIAL SQ SCH ×3 (05:45→22:21)
[2021-12-26] MEDS: INSULIN SLIDING SCALE (NOVOLOG) 1 VIAL SQ SCH ×4 (07:14→22:22)
[2021-12-26] MEDS: Insulin (LOG) Aspart 100 UNITS/ML VIAL SQ SCH ×3 (07:15→17:04)
[2021-12-26] MEDS: INSULIN (LEVEMIR) 100 UNITS/ML UNITS SQ SCH ×2 (08:59→22:20)
[2021-12-26] MEDS: amLODIPine BESYLATE 5 MG TABLET (FP) PO SCH (09:13)
[2021-12-26] MEDS: ASPIRIN COATED 81 MG TABLET.EC PO SCH (09:13)
[2021-12-26] MEDS: CARVEDILOL 6.25 MG TABLET (FP) PO SCH (09:13)
[2021-12-26] MEDS: TAMSULOSIN HCL 0.4 MG CAP PO SCH (09:13)
[2021-12-26] MEDS: FENOFIBRIC ACID 135 MG CAP PO SCH (09:15)
[2021-12-26] MEDS: ATORVASTATIN CA 80 MG TABLET (FP) PO SCH (22:21)
[2021-12-27] MEDS: Insulin (LOG) Aspart 100 UNITS/ML VIAL SQ SCH ×3 (06:12→16:50)
[2021-12-27] MEDS: HEPARIN NA (PORCINE) 5,000 UNITS/ML 1ML VIAL SQ SCH ×3 (06:13→21:25)
[2021-12-27] MEDS: INSULIN SLIDING SCALE (NOVOLOG) 1 VIAL SQ SCH ×4 (06:14→21:24)
[2021-12-27] MEDS: TAMSULOSIN HCL 0.4 MG CAP PO SCH (09:06)
[2021-12-27] MEDS: amLODIPine BESYLATE 5 MG TABLET (FP) PO SCH (09:06)
[2021-12-27] MEDS: ASPIRIN COATED 81 MG TABLET.EC PO SCH (09:06)
[2021-12-27] MEDS: CARVEDILOL 6.25 MG TABLET (FP) PO SCH (09:06)
[2021-12-27] MEDS: INSULIN (LEVEMIR) 100 UNITS/ML UNITS SQ SCH ×2 (09:07→21:24)
[2021-12-27] MEDS: FENOFIBRIC ACID 135 MG CAP PO SCH (10:10)
[2021-12-27] MEDS ORDERED: ASPIRIN 325 MG ENTERIC COATED TABLET (FP) PO SCH (13:13)
[2021-12-27] MEDS: ATORVASTATIN CA 80 MG TABLET (FP) PO SCH (21:25)
[2021-12-28] MEDS: INSULIN SLIDING SCALE (NOVOLOG) 1 VIAL SQ SCH ×3 (06:08→17:27)
[2021-12-28] MEDS: Insulin (LOG) Aspart 100 UNITS/ML VIAL SQ SCH ×3 (06:08→17:27)
[2021-12-28] MEDS: HEPARIN NA (PORCINE) 5,000 UNITS/ML 1ML VIAL SQ SCH ×2 (06:08→14:26)
[2021-12-28] MEDS ORDERED: LABETALOL HCL 5 MG/1 ML (100MG/20 ML VIAL) IVPUSH ONE (08:00)
[2021-12-28] MEDS: INSULIN (LEVEMIR) 100 UNITS/ML UNITS SQ SCH (08:44)
[2021-12-28] MEDS: TAMSULOSIN HCL 0.4 MG CAP PO SCH (08:45)
[2021-12-28] MEDS ORDERED: LOSARTAN 50MG/HCTZ 12.5MG 1 TAB PO SCH (10:00)
[2021-12-28] MEDS ORDERED: LISINOPRIL 10 MG TABLET PO SCH (10:00)
[2021-12-28 10:06] VITALS: BP 148/75; PULSE 84; TEMP 98
[2021-12-28] MEDS: CARVEDILOL 6.25 MG TABLET (FP) PO SCH (10:38)
[2021-12-28] MEDS: FENOFIBRIC ACID 135 MG CAP PO SCH (10:39)
[2021-12-28] MEDS: amLODIPine BESYLATE 5 MG TABLET (FP) PO SCH (10:39)
== END 2021-12-28 18:29 | DRG 65 ==
LOC: SUATTDRO 20:46 → JER 20:46 → JERBED 12-23 00:42 → J4W 12-23 18:12 → OBSVTOIN 12-24 11:40 → J4W 12-25 19:52
PROVIDERS: ADMIT Internal Medicine
DX: I63.9 Cerebral infarction, unspecified (principal); N17.9 Acute kidney failure, unspecified; N40.0 Benign prostatic hyperplasia without lower urinary tract symptoms; R29.700 NIHSS score 0; K21.9 Gastro-esophageal reflux disease without esophagitis; E66.9 Obesity, unspecified; Z68.39 Body mass index [BMI] 39.0-39.9, adult; I44.0 Atrioventricular block, first degree; I25.10 Atherosclerotic heart disease of native coronary artery without angina pectoris; I12.9 Hypertensive chronic kidney disease with stage 1 through stage 4 chronic kidney disease, or unspecified chronic kidney disease; E11.22 Type 2 diabetes mellitus with diabetic chronic kidney disease; N18.9 Chronic kidney disease, unspecified; N28.1 Cyst of kidney, acquired
CPT/HCPCS: 36415; 70450-TC; 70551-TC; 71045-TC-FY; 72141-TC; 76775-TC; 76856-TC; 80048; 80053; 80061; 81003; 82436; 82550; 82570; 82962; 83036; 83735; 84100; 84133; 84300; 84484; 84540; 85025; 85027; 85610; 85730; 86850; 86900; 86901; 87081; 93005; 93010; 93306-TC; 93880-TC; 97116-GP; 97162-GP; 99285-25; C9803; G0378; J1644; U0003; U0005

== ENCOUNTER 2023-06-15 04:14 | Day surgery (SDC) | payer OTHER ==
[2023-06-13 10:50] VITALS: BMI 37.4
[~2023-06-15 04:14] MED LIST: ACETAMINOPHEN 325 MG TABLET (FP) PO PRN
[2023-06-15 06:34] VITALS: RESP 20
[2023-06-15] MEDS ORDERED: CYCLOPENTOLATE HCL 1% OPHTH SOLN 2 ML BOTTLE ONE (06:44)
[2023-06-15] MEDS ORDERED: TROPICAMIDE 1% 3 ML EYE DROPS ONE (06:44)
[2023-06-15] MEDS ORDERED: OFLOXACIN 0.3% OPHTHALMIC SOLUTION 5 ML BOTTLE ONE (06:44)
[2023-06-15] MEDS ORDERED: KETOROLAC TROMETHAMINE 0.5% EYE DROP 1 DROP DROPS ONE (06:44)
[2023-06-15] MEDS ORDERED: PHENYLEPHRINE 2.5% OPTHALMIC DROP 2ML BOTTLE ONE (06:44)
[2023-06-15] MEDS: OFLOXACIN 0.3% OPHTHALMIC SOLUTION 5 ML BOTTLE OP SCH ×3 (06:55→07:05)
[2023-06-15] MEDS: PHENYLEPHRINE 2.5% OPHTH SOLN 15 ML BOTTLE OP SCH ×3 (06:55→07:05)
[2023-06-15] MEDS: CYCLOPENTOLATE HCL 1% OPHTH SOLN 2 ML BOTTLE OP SCH ×3 (06:55→07:06)
[2023-06-15] MEDS: KETOROLAC TROMETHAMINE 0.5% EYE DROP 1 DROP DROPS OP SCH ×3 (06:55→07:06)
[2023-06-15] MEDS: TROPICAMIDE 1% OPHTH SOLN 15 ML BOTTLE OP SCH ×3 (06:55→07:05)
[2023-06-15] MEDS ORDERED: TETRACAINE 0.5% OPHTH SOLN 2 ML BOTTLE ONE (07:13)
[2023-06-15] MEDS ORDERED: BSS (NA/CA/MG/K) BALANCED SALT SOLUTION OPHTH SOLN 15 ML BOTTLE ONE (07:13)
[2023-06-15] MEDS ORDERED: VANCOMYCIN 500 MG VIAL (RESTRICTED TO ID ONLY) ONE (07:13)
[2023-06-15] MEDS ORDERED: EPINEPHrine/PF 1 MG/1 ML (1:1,000) AMPULE ONE (07:13)
[2023-06-15] MEDS ORDERED: POVIDONE-IODINE 5% OPHTHALMIC PREP 30 ML SOLUTION ONE (07:14)
[2023-06-15] MEDS ORDERED: TRYPAN BLUE 0.5 ML DISP.SYRIN ONE (07:14)
[2023-06-15] MEDS ORDERED: LIDOCAINE HCL 1% PRESERVATIVE FREE - 30ML VIAL IJ ONE ×2 (07:44→08:04)
[2023-06-15] MEDS ORDERED: POVIDONE-IODINE 5% OPHTHALMIC PREP 30 ML SOLUTION OD ONE ×2 (07:44→08:02)
[2023-06-15] MEDS ORDERED: TETRACAINE 0.5% OPHTH SOLN 2 ML BOTTLE OD ONE ×2 (07:44→07:59)
[2023-06-15] MEDS ORDERED: BSS (NA/CA/MG/K) BALANCED SALT SOLUTION OPHTH SOLN 15 ML BOTTLE OD ONE ×2 (07:45→08:15)
[2023-06-15] MEDS ORDERED: PHENYLEPHRINE/KETOROLAC 4 ML VIAL IO ONE ×2 (07:45→08:15)
[2023-06-15] MEDS ORDERED: MIDAZOLAM HCL 2 MG/2 ML SINGLE DOSE VIAL ONE (07:47)
[2023-06-15] MEDS ORDERED: SUCCINYLCHOLINE CHLORIDE 200 MG/10 ML SYRINGE ONE (07:48)
[2023-06-15] MEDS ORDERED: CHONDROITIN SU A/HYALUR SOD 1 KIT IO ONE (08:15)
[2023-06-15 09:28] VITALS: TEMP 97.2
[2023-06-15 09:32] VITALS: BP 122/71; PULSE 82
== END 2023-06-15 09:20 | disposition home or self-care (01) ==
LOC: JASU-SURG 04:14
PROVIDERS: ATTEND Ophthalmology
PROC: 08RJ3JZ Replacement of Right Lens with Synthetic Substitute, Percutaneous Approach (ICD-10-PCS; principal; 2023-06-15 08:00)
DX: H26.9 Unspecified cataract (principal)
CPT/HCPCS: J1097; V2632

== ENCOUNTER 2023-06-29 04:30 | Day surgery (SDC) | payer OTHER ==
[2023-06-27 17:49] VITALS: BMI 39.1
[~2023-06-29 04:30] MED LIST changes: +CYCLOPENTOLATE HCL 1% OPHTH SOLN 2 ML BOTTLE OP SCH; +KETOROLAC TROMETHAMINE 0.5% EYE DROP 1 DROP DROPS OP SCH; +OFLOXACIN 0.3% OPHTHALMIC SOLUTION 5 ML BOTTLE OP SCH; +PHENYLEPHRINE 2.5% OPHTH SOLN 15 ML BOTTLE OP SCH; +TROPICAMIDE 1% OPHTH SOLN 15 ML BOTTLE OP SCH
[2023-06-29] MEDS ORDERED: POVIDONE-IODINE 5% OPHTHALMIC PREP 30 ML SOLUTION ONE (07:47)
[2023-06-29] MEDS ORDERED: TROPICAMIDE 1% 3 ML EYE DROPS ONE (09:31)
[2023-06-29] MEDS ORDERED: OFLOXACIN 0.3% OPHTHALMIC SOLUTION 5 ML BOTTLE ONE (09:31)
[2023-06-29] MEDS ORDERED: KETOROLAC TROMETHAMINE 0.5% EYE DROP 1 DROP DROPS ONE (09:31)
[2023-06-29] MEDS ORDERED: PHENYLEPHRINE 2.5% OPTHALMIC DROP 2ML BOTTLE ONE (09:31)
[2023-06-29] MEDS ORDERED: CYCLOPENTOLATE HCL 1% OPHTH SOLN 2 ML BOTTLE ONE (09:31)
[2023-06-29] MEDS ORDERED: PHENYLEPHRINE 2.5% OPHTH SOLN 15 ML BOTTLE OD ONE ×3 (09:40→09:50)
[2023-06-29] MEDS ORDERED: CYCLOPENTOLATE HCL 1% OPHTH SOLN 2 ML BOTTLE OD ONE ×3 (09:40→09:50)
[2023-06-29] MEDS ORDERED: KETOROLAC TROMETHAMINE 0.5% EYE DROP 1 DROP DROPS OD ONE ×3 (09:40→09:50)
[2023-06-29] MEDS ORDERED: TROPICAMIDE 0.5% OPHTHALMIC SOLN 15 ML BOTTLE OD ONE (09:40)
[2023-06-29] MEDS ORDERED: OFLOXACIN 0.3% OPHTHALMIC SOLUTION 5 ML BOTTLE OD ONE ×3 (09:40→09:50)
[2023-06-29] MEDS ORDERED: TROPICAMIDE 1% OPHTH SOLN 15 ML BOTTLE OD ONE ×2 (09:45→09:50)
[2023-06-29 09:53] VITALS: RESP 18
[2023-06-29] MEDS ORDERED: TETRACAINE 0.5% OPHTH SOLN 2 ML BOTTLE OS ONE (11:01)
[2023-06-29] MEDS ORDERED: POVIDONE-IODINE OINTMENT 10% - 28.4 GM TUBE TP ONE (11:05)
[2023-06-29] MEDS ORDERED: MIDAZOLAM HCL 2 MG/2 ML SINGLE DOSE VIAL ONE (11:07)
[2023-06-29] MEDS ORDERED: LIDOCAINE 1% P/F 10 MG/ML VIAL PNB ONE (11:17)
[2023-06-29] MEDS ORDERED: EPINEPHrine/PF 1 MG/1 ML (1:1,000) AMPULE SQ ONE ×2 (11:18→11:22)
[2023-06-29] MEDS ORDERED: BSS (NA/CA/MG/K) BALANCED SALT SOLUTION OPHTH SOLN 15 ML BOTTLE OS ONE (11:18)
[2023-06-29] MEDS ORDERED: CHONDROITIN SU A/HYALUR SOD 1 KIT IO ONE (11:18)
[2023-06-29] MEDS ORDERED: PHENYLEPHRINE/KETOROLAC 4 ML VIAL IO ONE (11:22)
[2023-06-29 14:26] VITALS: BP 116/70; PULSE 85; TEMP 97.8
== END 2023-06-29 12:25 | disposition home or self-care (01) ==
LOC: JASU-SURG 04:30
PROVIDERS: ATTEND Ophthalmology
PROC: 08RK3JZ Replacement of Left Lens with Synthetic Substitute, Percutaneous Approach (ICD-10-PCS; principal; 2023-06-29 11:00)
DX: H26.9 Unspecified cataract (principal)
CPT/HCPCS: 82962; J1097; V2632

== ENCOUNTER 2024-09-13 19:49 | Observation (INO) | payer OTHER ==
[2024-09-13] MEDS: SODIUM CHLORIDE 1,000 ML IV SCH (20:48)
[2024-09-13 21:00] LABS: BASO % 0.4 % (0-2.0); EOS % 2.7 % (0-4.5); HEMATOCRIT 41.6 % (35.4-49); HEMOGLOBIN 13.8 GM/dL (11.7-16.9); LYMPH % 23.8 % (8-40); MCH 28.1 pg (25.7-33.7); MCHC 33.1 g/dl (32.0-35.9); MEAN CELL VOLUME 84.9 fl (80-96); MONO % 4.4 % (3.8-10.2); NEUT % 68.7 % (42.8-82.8); PLATELET COUNT 427 10^3/uL (134-434); RBC 4.89 M/mm3 (4.00-5.60); RDW 15.6 % (11.9-15.9); WHITE BLOOD COUNT 13.6 K/mm3 (4.0-10.0)
[2024-09-13 21:12] LABS: POTASSIUM 3.6 mmol/L (3.5-5.1)
[2024-09-13 21:14] LABS: CALCIUM 9.4 mg/dL (8.5-10.1); INR 1.02 (0.83-1.09); PROTHROMBIN TIME (PATIENT) 11.7 SEC (9.7-13.0)
[2024-09-13 21:15] LABS: ALBUMIN 3.9 g/dl (3.4-5.0); BLOOD UREA NITROGEN 24.9 mg/dL (7-18)
[2024-09-13] MEDS ORDERED: METOCLOPRAMIDE HCL INJECTION 10 MG/2 ML VIAL ONE (21:15)
[2024-09-13 21:17] LABS: ACTIVATED PTT 28.2 SECONDS (25.2-36.5); CHOLESTEROL 144 mg/dL (50-200)
[2024-09-13 21:18] LABS: CREATININE 1.9 mg/dL (0.55-1.3); LDL CHOLESTEROL (ONLY SJRH) 89 mg/dL (5-100)
[2024-09-13 21:20] LABS: BILIRUBIN,TOTAL 0.4 mg/dL (0.2-1); HDL CHOLESTEROL 45 mg/dL (40-60); TOT PROT 7.3 g/dl (6.4-8.2)
[2024-09-13] MEDS ORDERED: ACETAMINOPHEN INJECTION 100 ML ONE (21:24)
[2024-09-13] MEDS: SODIUM CHLORIDE 0.9% 500 ML INFUS.BAG IV ONE (21:33)
[2024-09-13] MEDS: ACETAMINOPHEN 1000 MG/100 ML BAG IVPB ONE (21:33)
[2024-09-13] MEDS: METOCLOPRAMIDE HCL INJECTION 10 MG/2 ML VIAL IVPB ONE (21:33)
[2024-09-13] MEDS ORDERED: ASPIRIN 81 MG CHEWABLE TABLETS ONE ×2 (21:42→21:53)
[2024-09-13] MEDS: ASPIRIN 81 MG CHEWABLE TABLETS PO ONE ×2 (21:45→21:52)
[2024-09-13 23:13] LABS: EPI CELLS >36 /uL (0-25.1); HYALINE CASTS 2 /uL (0-3.1); PH,URINE 5.5 (5.0-8.0); URINE APPEARANCE CLEAR; URINE BACTERIA 48 /uL (0-1359); URINE BILIRUBIN NEGATIVE (NEGATIVE); URINE COLOR YELLOW; URINE GLUCOSE (UA) 3+ (NEGATIVE); URINE KETONE NEGATIVE (NEGATIVE); URINE LEUK ESTERASE NEGATIVE (NEGATIVE); URINE NITRITE NEGATIVE (NEGATIVE); URINE PROTEIN NEGATIVE (NEGATIVE); URINE RBC 84 /uL (0-23.9); URINE UROBILINOGEN 0.2 mg/dL (0.2-1.0); URINE WBC 44 /uL (0-25.8)
[2024-09-13 23:47] VITALS: BMI 34.4
[2024-09-14 03:05] LABS: HEMATOCRIT 40.9 % (35.4-49); HEMOGLOBIN 13.8 GM/dL (11.7-16.9); MCH 28.5 pg (25.7-33.7); MCHC 33.7 g/dl (32.0-35.9); MEAN CELL VOLUME 84.5 fl (80-96); MEAN PLT VOLUME 7.6 fl (7.5-11.1); PLATELET COUNT 256 10^3/uL (134-434); RBC 4.84 M/mm3 (4.00-5.60); RDW 15.6 % (11.9-15.9); WHITE BLOOD COUNT 12.6 K/mm3 (4.0-10.0)
[2024-09-14] MEDS: INSULIN ASPART SLIDING SCALE (NOVOLOG) 1 VIAL SQ SCH (06:17)
[2024-09-14 08:36] LABS: HEMATOCRIT 41.2 % (35.4-49); HEMOGLOBIN 13.5 GM/dL (11.7-16.9); MCH 28.1 pg (25.7-33.7); MCHC 32.7 g/dl (32.0-35.9); MEAN PLT VOLUME 7.5 fl (7.5-11.1); PLATELET COUNT 382 10^3/uL (134-434); RBC 4.79 M/mm3 (4.00-5.60); RDW 15.4 % (11.9-15.9)
[2024-09-14 08:55] LABS: POTASSIUM 4.2 mmol/L (3.5-5.1)
[2024-09-14 09:00] LABS: ALBUMIN 3.5 g/dl (3.4-5.0); BLOOD UREA NITROGEN 22.1 mg/dL (7-18); CALCIUM 9.2 mg/dL (8.5-10.1); MAGNESIUM 2.4 mg/dL (1.8-2.4)
[2024-09-14 09:04] LABS: BILIRUBIN,TOTAL 0.5 mg/dL (0.2-1); CREATININE 1.6 mg/dL (0.55-1.3); PHOSPHOROUS 4.2 mg/dL (2.5-4.9); TOT PROT 6.8 g/dl (6.4-8.2)
[2024-09-14] MEDS: ESCITALOPRAM OXALATE 10 MG TABLET PO SCH (09:17)
[2024-09-14] MEDS: ENOXAPARIN NA (PORCINE) 40 MG/0.4 ML DISP.SYRIN SQ SCH (09:19)
[2024-09-14] MEDS: CLOPIDOGREL BISULFATE 75 MG TABLET (FP) PO SCH (09:19)
[2024-09-14] MEDS: ATORVASTATIN CA 80 MG TABLET (FP) PO SCH (21:28)
[2024-09-14] MEDS: TAMSULOSIN HCL 0.4 MG CAP PO SCH (21:28)
[2024-09-14] MEDS: ASPIRIN COATED 81 MG TABLET.EC PO SCH (21:28)
[2024-09-14] MEDS: LOSARTAN POTASSIUM 50 MG TABLET PO SCH (21:28)
[2024-09-14] MEDS: FENOFIBRIC ACID 135 MG CAP PO SCH (21:45)
[2024-09-15 06:28] VITALS: RESP 18
[2024-09-15 09:43] LABS: HEMATOCRIT 38.8 % (35.4-49); HEMOGLOBIN 13.1 GM/dL (11.7-16.9); MCH 28.4 pg (25.7-33.7); MCHC 33.8 g/dl (32.0-35.9); MEAN CELL VOLUME 84.2 fl (80-96); MEAN PLT VOLUME 7.8 fl (7.5-11.1); PLATELET COUNT 349 10^3/uL (134-434); RBC 4.61 M/mm3 (4.00-5.60); RDW 15.3 % (11.9-15.9); WHITE BLOOD COUNT 11.6 K/mm3 (4.0-10.0)
[2024-09-15 10:03] LABS: POTASSIUM 3.8 mmol/L (3.5-5.1)
[2024-09-15 10:08] LABS: ALBUMIN 3.2 g/dl (3.4-5.0); CALCIUM 8.9 mg/dL (8.5-10.1)
[2024-09-15 10:09] LABS: BLOOD UREA NITROGEN 23.7 mg/dL (7-18); MAGNESIUM 2.2 mg/dL (1.8-2.4)
[2024-09-15 10:11] LABS: CREATININE 1.5 mg/dL (0.55-1.3)
[2024-09-15 10:12] LABS: BILIRUBIN,TOTAL 0.6 mg/dL (0.2-1); TOT PROT 6.3 g/dl (6.4-8.2)
[2024-09-15 11:28] VITALS: BP 136/94; PULSE 68; TEMP 98.4
== END 2024-09-15 18:07 | disposition home or self-care (01) ==
LOC: JER 19:49 → JERBED 21:28 → UNDOADMOB 21:28 → JERBED 23:28 → J4S 23:28 → INTOOBSV 09-14 → OBSVTOIN 09-14 → JERBED 09-15 10:13 → J4S 09-15 10:13
PROVIDERS: ADMIT Internal Medicine; ATTEND Internal Medicine
PROC: 3E033NZ Introduction of Analgesics, Hypnotics, Sedatives into Peripheral Vein, Percutaneous Approach (ICD-10-PCS; principal; 2024-09-15)
PROC: 3E023GC Introduction of Other Therapeutic Substance into Muscle, Percutaneous Approach (ICD-10-PCS; 2024-09-15)
PROC: 3E013VG Introduction of Insulin into Subcutaneous Tissue, Percutaneous Approach (ICD-10-PCS; 2024-09-15)
PROC: 3E033GC Introduction of Other Therapeutic Substance into Peripheral Vein, Percutaneous Approach (ICD-10-PCS; 2024-09-15)
PROC: 3E0337Z Introduction of Electrolytic and Water Balance Substance into Peripheral Vein, Percutaneous Approach (ICD-10-PCS; 2024-09-15)
DX: E11.22 Type 2 diabetes mellitus with diabetic chronic kidney disease (principal); I12.9 Hypertensive chronic kidney disease with stage 1 through stage 4 chronic kidney disease, or unspecified chronic kidney disease; N18.9 Chronic kidney disease, unspecified; I69.351 Hemiplegia and hemiparesis following cerebral infarction affecting right dominant side; E78.5 Hyperlipidemia, unspecified; N40.0 Benign prostatic hyperplasia without lower urinary tract symptoms; F41.9 Anxiety disorder, unspecified; E66.812 Obesity, class 2; Z86.14 Personal history of Methicillin resistant Staphylococcus aureus infection; R26.89 Other abnormalities of gait and mobility; D72.829 Elevated white blood cell count, unspecified; E11.9 Type 2 diabetes mellitus without complications; Z87.891 Personal history of nicotine dependence
CPT/HCPCS: 0241U-QW; 36415; 70450-TC; 70496-TC; 70498-TC; 70551-TC; 71045-TC-FY; 76775-TC; 80053; 80061; 81003; 82550; 82962; 83036; 83735; 84100; 84443; 84484; 85025; 85027; 85610; 85730; 86850; 86900; 86901; 87086; 93005; 93010; 93306-TC; 96372; 96374; 96375; 97116-GP; 97161-GP; 99285-25; G0378; J0131